=== PATIENT | female | born 1945 | race Caucasian/White ===

== ENCOUNTER 2021-06-30 06:20 | Day surgery (SDC) | payer MEDICARE ==
[2021-06-29 13:34] LABS: INR 1.01 (0.85-1.15)
[2021-06-29 13:35] LABS: PARTIAL THROMBOPLASTIN TIME 23.1 SEC (26.3-35.5)
[~2021-06-30] VITALS: Ht 162.6 cm; Wt 54.1 kg
[2021-06-30 06:47] VITALS: BP 158/63
[2021-06-30] MEDS ORDERED: SOLU-MEDROL 125MG VIAL ONE (07:17)
[2021-06-30] MEDS ORDERED: DiphenhydrAMINE HCL 50 MG/ML VIAL ONE (07:17)
[2021-06-30] MEDS ORDERED: FAMOTIDINE 20MG VIAL IV ONE (07:18)
[2021-06-30] MEDS ORDERED: LIDOCAINE HCL 400MG/20ML VIAL ONE (07:18)
[2021-06-30] MEDS ORDERED: IODIXANOL 320 MG/ML 100 ML VIAL ONE (07:18)
[2021-06-30] MEDS ORDERED: CALC-1125 PO (07:39)
[2021-06-30] MEDS ORDERED: ANAS1TAB49 PO (07:39)
[2021-06-30] MEDS ORDERED: NAPR220C15 PO (07:39)
[2021-06-30] MEDS ORDERED: PALB75TA PO (07:39)
[2021-06-30] MEDS ORDERED: LATA7.5D OP (07:39)
[2021-06-30] MEDS ORDERED: NAPR1TAB28 PO (07:39)
[2021-06-30] MEDS ORDERED: 0.9%NACL 1000ML 1,000 ML IV ONE (07:41)
[2021-06-30 08:30] VITALS: BP 154/92
[2021-06-30 08:45] VITALS: BP 156/58
[2021-06-30 09:00] VITALS: BP 131/98
[2021-06-30 09:15] VITALS: BP 142/60
[2021-06-30 09:30] VITALS: BP 146/66
== END 2021-06-30 09:48 | disposition home or self-care (01) ==
LOC: DAH 06:20
PROVIDERS: ATTEND Internal Medicine Hematology & Oncology
DX: Z86.711 Personal history of pulmonary embolism (principal); C50.411 Malignant neoplasm of upper-outer quadrant of right female breast; E86.0 Dehydration; C94.80 Other specified leukemias not having achieved remission; I73.00 Raynaud's syndrome without gangrene; J44.9 Chronic obstructive pulmonary disease, unspecified; M85.80 Other specified disorders of bone density and structure, unspecified site; Z98.890 Other specified postprocedural states; Z92.3 Personal history of irradiation; Z92.21 Personal history of antineoplastic chemotherapy; Z90.10 Acquired absence of unspecified breast and nipple; Z79.01 Long term (current) use of anticoagulants; Z88.3 Allergy status to other anti-infective agents
CPT/HCPCS: 36415; 37191; 85610; 85730; A4215; A4216; A4221; A4222; A4223 ×3; A4606; A4663; C1769; C1880; C1894; J1200; J1644; J2930; J3490 ×2; J7030; Q9967